=== PATIENT | female | born 1990 | race Caucasian/White ===

== ENCOUNTER 2017-11-20 15:12 | Emergency (ER) | payer MEDICAID ==
[~2017-11-20] VITALS: Ht 167.6 cm; Wt 59.1 kg
[2017-11-20 15:27] VITALS: Ht 167.6 cm; Wt 59.1 kg
[2017-11-20] MEDS ORDERED: OMEPRAZOLE40 MG PO (15:29)
[2017-11-20] MEDS ORDERED: ADDERALL 20 MG20 M1 PO (15:29)
[2017-11-20] MEDS ORDERED: ZOFRAN4 MG PO (15:29)
[2017-11-20 16:59] LABS: BASOPHILS 0.1 % (0-2); EOSINOPHILS 1.1 % (0-7); HEMATOCRIT 34.2 % (36.0-48.0); HEMOGLOBIN 11.8 g/dL (12-16); IMMATURE GRANULOCYTES 0.1 % (0-5); LYMPHOCYTES 32.6 % (15-50); MCH 31.6 pg (26.0-34.0); MCHC 34.5 g/dL (31.0-37.0); MCV 91.7 fL (80.0-100.0); MEAN PLATELET VOLUME 9.3 fL (7.4-10.4); MONOCYTES 4.6 % (2-11); NEUTROPHILS 61.5 % (40-80); PLATELET COUNT 269 10x3/uL (130-400); RBC 3.73 10x6/uL (4.00-5.40); RDW 12.9 % (11.5-14.5); WBC 7.6 10x3/uL (4.8-10.8)
[2017-11-20 17:29] LABS: ALBUMIN 3.7 g/dL (3.4-5.0); ALKALINE PHOSPHATASE 64 U/L (46-116); ALT (SGPT) 24 U/L (10-68); BILIRUBIN - TOTAL 0.31 mg/dL (0.2-1.3); CALC OSMOLALITY 277 mosm/kg (275-300); CALCIUM 8.8 mg/dL (8.5-10.1); CARBON DIOXIDE 26.2 mmol/L (21.0-32.0); CHLORIDE - SERUM 105 mmol/L (98-107); CREATININE - SERUM 0.9 mg/dL (0.6-1.3); GLUCOSE 109 mg/dL (74-106); POTASSIUM - SERUM 3.7 mmol/L (3.5-5.1); PROTEIN - SERUM 7.2 g/dL (6.4-8.2); SODIUM 140 mmol/L (136-145); UREA NITROGEN 7 mg/dL (7-18); eGFR NON AFRICAN AMERICAN 78 mL/min (90-120)
[2017-11-20 17:38] LABS: AMYLASE - SERUM 54 U/L (25-115); LIPASE 98 U/L (73-393)
[2017-11-20 18:12] LABS: APPEARANCE CLEAR (CLEAR); BILIRUBIN NEGATIVE (NEGATIVE); COLOR YELLOW (YELLOW); EPITHELIAL CELLS 0-5 /hpf (0-5); GLUCOSE NEGATIVE (NEGATIVE); KETONE NEGATIVE (NEGATIVE); NITRITE NEGATIVE (NEGATIVE); PROTEIN NEGATIVE (NEGATIVE); RED CELLS - URINE OCC /hpf (0-5); SPECIFIC GRAVITY 1.015 (1.005-1.020); UROBILINOGEN NORMAL (NORMAL); WHITE CELLS - URINE 0-5 /hpf (0-5)
[2017-11-20 18:13] LABS: BACTERIA FEW /hpf (NONE SEEN); MUCUS <1+ /lpf (NONE SEEN)
[2017-11-20] MEDS ORDERED: MACROBID100 MG PO (18:47)
[2017-11-20] MEDS ORDERED: BENTYL 20 MG TA20 MG PO (18:47)
[2017-11-20] MEDS ORDERED: COMPAZINE10 MG PO (18:47)
[2017-11-20 19:32] VITALS: BP 112/81
[2017-11-20 22:05] LABS: HCG URINE NEGATIVE (NEGATIVE)
== END 2017-11-20 19:33 | disposition home or self-care (01) ==
LOC: D.ER 15:12
PROVIDERS: Family Medicine
DX: N39.0 Urinary tract infection, site not specified (principal); R10.9 Unspecified abdominal pain; R11.2 Nausea with vomiting, unspecified

== ENCOUNTER 2018-04-10 11:07 | Inpatient (IN) | payer MEDICAID ==
[~2018-04-10] VITALS: Ht 167.6 cm; Wt 61.2 kg
[~2018-04-10 11:07] MED LIST: ADDERALL 20 MG20 M1 PO; BENTYL 20 MG TA20 MG PO; COMPAZINE10 MG PO; MACROBID100 MG PO; OMEPRAZOLE40 MG PO; ZOFRAN4 MG PO
[2018-04-10] MEDS ORDERED: ERYTHROCIN STE250 MG PO (11:16)
[2018-04-10 11:55] LABS: BASOPHILS 0.1 % (0-2); EOSINOPHILS 0.6 % (0-7); HEMOGLOBIN 12.3 g/dL (12-16); MCH 31.1 pg (26.0-34.0); MCHC 34.2 g/dL (31.0-37.0); MCV 91.1 fL (80.0-100.0); MEAN PLATELET VOLUME 9.2 fL (7.4-10.4); MONOCYTES 4.6 % (2-11); NEUTROPHILS 64.7 % (40-80); PLATELET COUNT 277 10x3/uL (130-400); RBC 3.95 10x6/uL (4.00-5.40); RDW 13.2 % (11.5-14.5); WBC 6.9 10x3/uL (4.8-10.8)
--- NOTE | 2018-04-10 11:55 | NUR ---
OCCULT BLOOD STOOL SPEC POSITIVE. EDP DR BULLOCK NOTIFIED OF RESULT.
[2018-04-10 12:00] VITALS: BP 123/91
[2018-04-10] MEDS ORDERED: KLONOPIN1 MG PO (12:07)
[2018-04-10] MEDS ORDERED: ZYPREXA10 MG PO (12:09)
[2018-04-10] MEDS ORDERED: PHENERGAN25 MG RC (12:09)
[2018-04-10 12:13] LABS: ALBUMIN 3.8 g/dL (3.4-5.0); ALKALINE PHOSPHATASE 70 U/L (46-116); ALT (SGPT) 18 U/L (10-68); BILIRUBIN - TOTAL 0.35 mg/dL (0.2-1.3); CALC OSMOLALITY 278 mosm/kg (275-300); CALCIUM 9.6 mg/dL (8.5-10.1); CARBON DIOXIDE 26.1 mmol/L (21.0-32.0); CHLORIDE - SERUM 103 mmol/L (98-107); CREATININE - SERUM 0.9 mg/dL (0.6-1.3); GLUCOSE 113 mg/dL (74-106); POTASSIUM - SERUM 4.2 mmol/L (3.5-5.1); SODIUM 140 mmol/L (136-145); UREA NITROGEN 10 mg/dL (7-18); eGFR NON AFRICAN AMERICAN 78 mL/min (90-120)
[2018-04-10 12:35] LABS: CKMB 0.5 U/L (0.0-3.6); CREATINE KINASE 88 UL (21-215)
[2018-04-10 12:38] LABS: TROPONIN-I < 0.017 ng/mL (0.000-0.060)
[2018-04-10 13:00] VITALS: BP 134/97
--- NOTE | 2018-04-10 13:21 | NUR ---
PT SITTING SEMI FOWLERS. CALL LIGHT IN REACH. NO DISTRESS NOTED. PT HAS NO NEEDS AT THIS TIME. WILL CONT TO MONITOR.
[2018-04-10 14:30] VITALS: BP 136/96
[2018-04-10 15:30] VITALS: BP 132/93
--- NOTE | 2018-04-10 15:36 | NUR ---
PATIENT OBSERVED SITTING IN SEMI FOWLERS. NO SIGNS OF DISTRESS. RESP EVEN AND UNLABORED. CALL LIGHT IN REACH. NO VOMITING SINCE ARRIVAL TO ED NOTED OR REPORTED.
[2018-04-10 16:30] VITALS: BP 123/91
--- NOTE | 2018-04-10 18:08 | NUR ---
NURSE ATTEMPTED TO CALL REPORT AT THIS TIME, RECEIVING NURSE UNAVAILABLE. WILL ATTEMPT TO CALL REPORT AGAIN SHORTLY.
[2018-04-10 20:35] VITALS: BP 120/80
--- NOTE | 2018-04-10 23:30 | NUR ---
PT C/O HAVING PAIN AND DISCOMFORT STARTING IN [place]LLY [place]TON THAT RADIATES TO RT SIDE. LEVISIN ORDERED Q8, NEXT DOSE WASNT UNTILL 0300AM. CALLED DOC AND HE GAVE PERMISSION TO GIVE EARLY. GAVE KLONIPIN AFTER NAUSEA SUBSIDED. WILL CONTINUE POC.
[2018-04-11] VITALS (7 sets, daily range): BP systolic 99–120; BP diastolic 67–87; Ht 167.6 cm; Wt 61.2 kg
[2018-04-11] MEDS ORDERED: CHRONULAC30 ML PO (02:12)
[2018-04-11 05:21] LABS: BASOPHILS 0.2 % (0-2); EOSINOPHILS 1.7 % (0-7); HEMATOCRIT 36.6 % (36.0-48.0); HEMOGLOBIN 12.4 g/dL (12-16); LYMPHOCYTES 39.2 % (15-50); MCH 31.3 pg (26.0-34.0); MCHC 33.9 g/dL (31.0-37.0); MCV 92.4 fL (80.0-100.0); MEAN PLATELET VOLUME 9.2 fL (7.4-10.4); MONOCYTES 7.5 % (2-11); NEUTROPHILS 51.4 % (40-80); PLATELET COUNT 242 10x3/uL (130-400); RBC 3.96 10x6/uL (4.00-5.40); RDW 13.1 % (11.5-14.5); WBC 5.3 10x3/uL (4.8-10.8)
[2018-04-11 05:51] LABS: ALBUMIN 3.5 g/dL (3.4-5.0); ALKALINE PHOSPHATASE 65 U/L (46-116); ALT (SGPT) 16 U/L (10-68); BILIRUBIN - TOTAL 0.66 mg/dL (0.2-1.3); CALC OSMOLALITY 272 mosm/kg (275-300); CALCIUM 8.9 mg/dL (8.5-10.1); CARBON DIOXIDE 25.9 mmol/L (21.0-32.0); CHLORIDE - SERUM 101 mmol/L (98-107); CREATININE - SERUM 0.9 mg/dL (0.6-1.3); GLUCOSE 120 mg/dL (74-106); MAGNESIUM - SERUM 1.6 mg/dL (1.8-2.4); PHOSPHOROUS 3.5 mg/dL (2.5-4.9); POTASSIUM - SERUM 4.1 mmol/L (3.5-5.1); PROTEIN - SERUM 7.4 g/dL (6.4-8.2); SODIUM 137 mmol/L (136-145); eGFR NON AFRICAN AMERICAN 78 mL/min (90-120)
[2018-04-11 05:52] LABS: UREA NITROGEN 6 mg/dL (7-18)
--- NOTE | 2018-04-11 07:59 | NUR ---
PT RESTING QUIETLY IN BED. ALERT AND ORIENTED. NO ACUTE DISTRESS. VOICES PAIN 2/10 AT THIS TIME, BUT CONTINUES TO VOICE MILD NAUSEA. ABDOMEN SOFT, BUT TENDER AT THIS TIME. DENIES NEED FOR NAUSEA MEDS AT THIS TIME. IV TO RIGHT HAND WITH D5W WITH 20K @ 125ML/HR INFUSING VIA PUMP. SITE WITHOUT REDNESS OR EDEMA. PT DENIES FURTHER NEEDS AT THIS TIME. CL WITHIN REACH. ENCOURAGED TO CALL WITH NEEDS. CONTINUE POC
--- NOTE | 2018-04-11 14:18 | MORECARE ---
CASE MANAGEMENT DISCHARGE SUMMARY PATIENT: MARIA M BOONE UNIT: [id number] ADM DATE: 04/10/18 AGE: 28 : [birth year] SEX: F ROOM/BED: D.2233 AUTHOR: NADJA MOTA PHYSICIAN: REFERRING PHYSICIAN: DARRYL MCKAY DO DATE OF SERVICE: 04/11/18 Discharge Plan Patient Name: MARIA M BOONE [facility] [facility] 1990 Planned Disposition: Home Anticipated Discharge Date: Discharge Date: Expected LOS: Initial Reviewer: [email or web address] Initial Review Date: 04/11/2018 Generated: 04/11/18 3:18 pm DCPIA - Discharge Planning Initial Assessment Updated by [email or web address]: Jaye Caballero on 04/11/18 2:15 pm * Is the patient Alert and Oriented? Yes * How many steps to enter\exit or inside your home? 0/0 * PCP Dr. Ernie Giron in [place] * Pharmacy [facility] in [place] * Preadmission Environment Home with Family * ADLs Independent * Equipment None * List name and contact numbers for known caregivers / representatives who currently or will assist patient after discharge: Osvaldo Lopez [facility] - [phone] * Verbal permission to speak to the caregivers and representatives has been obtained from the patient. Yes * Community resources currently utilized None * Additional services required to return to the preadmission environment? No * Can the patient safely return to the preadmission environment? Yes * Has this patient been hospitalized within the prior 30 days at any hospital? Yes Patient Name: MARIA M BOONE Page [id number] at 1418 All edits/amendments must be made on the electronic document DICTATION DATE: 04/11/181417 POURER BULL LADLE: HUNTER 04/11/181417 RPT#: [id number] DC DATE: STATUS: ADM IN [facility] [address] [place] [address] END OF REPORT
--- NOTE | 2018-04-11 14:29 | MORECARE ---
CASE MANAGEMENT DISCHARGE SUMMARY PATIENT: MARIA M BOONE UNIT: [id number] ADM DATE: 04/10/18 AGE: 28 : [birth year] SEX: F ROOM/BED: D.2233 AUTHOR: SVETLANA,DOC PHYSICIAN: REFERRING PHYSICIAN: DARRYL MCKAY DO DATE OF SERVICE: 04/11/18 Discharge Plan Patient Name: MARIA M BOONE Facility: [facility]:[place] : 1990 Planned Disposition: Home Anticipated Discharge Date: Discharge Date: Expected LOS: Initial Reviewer: [email or web address] Initial Review Date: 04/11/2018 Generated: 04/11/18 3:28 pm Comments DCP- Discharge Planning Updated by [email or web address]: Jaye Caballero on 04/11/18 1:[address] Patient Name: MARIA M BOONE Admission Status: ER Accout number: [id number] Admission Date: 04-10-2018 : 1990 Admission Diagnosis: Attending: DARRYL MCKAY Current LOS: 1 Anticipated DC Date: Planned Disposition: Home Primary Insurance: [employer] [place] PRIVATE OPTIONS MARIAH Discharge Planning Comments: CM met with patient to discuss discharge planning, she is alone in the room. States she lives with her parents and 9 year old daughter. States she is independent with all ADL's and IADL's. States she does not have any DME or need any DME. Declines need for home health. States she sees an [facility] in [place] as her GI specialist. States she has had gastroparesis for 5 years and usually can come to the ER for fluids and be ok, but this is her 3rd hospitalization this month. CM will continue to follow and assist with discharge planning/needs. Control Chemist: Jaye Caballero DCPIA - Discharge Planning Initial Assessment Updated by [email or web address]: Jaye Caballero on 04/11/18 2:15 pm * Is the patient Alert and Oriented? Yes * How many steps to enter\exit or inside your home? 0/0 * PCP Dr. Ernie Giron in [place] * Pharmacy [facility] in [place] * Preadmission Environment Home with Family * ADLs Independent * Equipment None * List name and contact numbers for known caregivers / representatives who currently or will assist patient after discharge: Osvaldo Leung [facility] - [phone] * Verbal permission to speak to the caregivers and representatives has been obtained from the patient. Yes * Community resources currently utilized None * Additional services required to return to the preadmission environment? No * Can the patient safely return to the preadmission environment? Yes * Has this patient been hospitalized within the prior 30 days at any hospital? Yes Last DP export: 04/11/18 1:18 p Patient Name: MARIA M BOONE Page [id number] at 1429 All edits/amendments must be made on the electronic document DICTATION DATE: 04/11/181427 RESOURCES REPRESENTATIVE: HUNTER 04/11/181427 RPT#: [id number] DC DATE: STATUS: ADM IN [facility] [address] [place] [address] END OF REPORT
--- NOTE | 2018-04-11 19:10 | NUR ---
THE PATIENT WAS WATCHING TELEVISION WHEN STAFF ENTERED HER ROOM. BED IN THE LOW POSITION WITH SIDERAILS X2 AND CALL LIGHT WITHIN REACH. PATIENT DEMONSTRATED APPROPRIATE USE OF A CALL LIGHT. THE PATIENT APPEARS COMFORTABLE WITH NO QUESTIONS OR CONCERNS AT THIS TIME.
--- NOTE | 2018-04-11 20:10 | NUR ---
THE PATIENT WAS WATCHING TELEVISION WITH HIS WHEN STAFF ENTERED HIS ROOM. BED IN LOW POSITION WITH SIDERAILS X2 AND CALL LIGHT WITHIN REACH. PATIENT DEMONSTRATES USE OF A CALL LIGHT. THE PATIENT HAS NO QUESTIONS OR CONCERNS AT THIS TIME.
--- NOTE | 2018-04-11 23:15 | NUR ---
PATIENT REQUESTS PAIN MEDICATION. ORDERED SECURED AND PAIN MEDICATION DELIVERED.
--- NOTE | 2018-04-12 01:41 | NUR ---
NEW IV HUNG. THE PATIENT APPEARS COMFORTABLE AND HAS NO QUESTIONS OR CONCERNS AT THIS TIME.
[2018-04-12 05:04] VITALS: BP 96/64
[2018-04-12 05:18] LABS: BASOPHILS 0.2 % (0-2); EOSINOPHILS 2.1 % (0-7); HEMATOCRIT 39.7 % (36.0-48.0); HEMOGLOBIN 13.2 g/dL (12-16); MCH 31.2 pg (26.0-34.0); MCHC 33.2 g/dL (31.0-37.0); MCV 93.9 fL (80.0-100.0); MEAN PLATELET VOLUME 9.3 fL (7.4-10.4); MONOCYTES 5.5 % (2-11); NEUTROPHILS 52.2 % (40-80); RBC 4.23 10x6/uL (4.00-5.40); RDW 13.3 % (11.5-14.5); WBC 6.3 10x3/uL (4.8-10.8)
[2018-04-12 05:32] LABS: PLATELET COUNT 327 10x3/uL (130-400)
[2018-04-12 07:51] LABS: ALBUMIN 3.7 g/dL (3.4-5.0); ALKALINE PHOSPHATASE 68 U/L (46-116); ALT (SGPT) 19 U/L (10-68); BILIRUBIN - TOTAL 0.66 mg/dL (0.2-1.3); CALC OSMOLALITY 271 mosm/kg (275-300); CALCIUM 8.9 mg/dL (8.5-10.1); CARBON DIOXIDE 26.3 mmol/L (21.0-32.0); CHLORIDE - SERUM 101 mmol/L (98-107); CREATININE - SERUM 0.8 mg/dL (0.6-1.3); GLUCOSE 91 mg/dL (74-106); POTASSIUM - SERUM 4.1 mmol/L (3.5-5.1); PROTEIN - SERUM 7.9 g/dL (6.4-8.2); SODIUM 137 mmol/L (136-145); UREA NITROGEN 7 mg/dL (7-18); eGFR NON AFRICAN AMERICAN 89 mL/min (90-120)
[2018-04-12 09:46] VITALS: BP 95/64
--- NOTE | 2018-04-12 12:36 | MORECARE ---
CASE MANAGEMENT DISCHARGE SUMMARY PATIENT: MARIA M BOONE UNIT: [id number] ADM DATE: 04/10/18 AGE: 28 : [birth year] SEX: F ROOM/BED: D.2233 AUTHOR: NADJA MOTA PHYSICIAN: REFERRING PHYSICIAN: DARRYL MCKAY DO DATE OF SERVICE: 04/12/18 Discharge Plan Patient Name: MARIA M BOONE Facility: [facility]:[place] : 1990 Planned Disposition: Home Anticipated Discharge Date: Discharge Date: Expected LOS: Initial Reviewer: [email or web address] Initial Review Date: 04/11/2018 Generated: 04/12/18 1:36 pm Comments DCP- Discharge Planning Updated by [email or web address]: Jaye Caballero on 04/12/18 11:[address] Patient Name: MARIA M BOONE Encounter No: [id number] : 1990 Primary Insurance: [employer] PRIVATE OPTIONS MARIAH Anticipated DC Date: Planned Disposition: Home External Planned Provider: : DCP follow-up note: Patient in agreement with discharge plan. States she already has called her doctor's in [place] for follow-up. Denies discharge needs. No changes to plan. Case management will follow and assist as needed. Jaye Caballero DCP- Discharge Planning Updated by [email or web address]: Jaye Caballero on 04/11/18 1:[address] Patient Name: MARIA M BOONE Admission Status: ER Accout number: [id number] Admission Date: 04-10-2018 : 1990 Admission Diagnosis: Attending: DARRYL MCKAY Current LOS: 1 Anticipated DC Date: Planned Disposition: Home Primary Insurance: [employer] MARIAH Discharge Planning Comments: CM met with patient to discuss discharge planning, she is alone in the room. States she lives with her parents and 9 year old daughter. States she is independent with all ADL's and IADL's. States she does not have any DME or need any DME. Declines need for home health. States she sees an [facility] in [place] as her GI specialist. States she has had gastroparesis for 5 years and usually can come to the ER for fluids and be ok, but this is her 3rd hospitalization this month. CM will continue to follow and assist with discharge planning/needs. Blunger Loader: Jaye Caballero DCPIA - Discharge Planning Initial Assessment Updated by [email or web address]: Jaye Ada on 04/11/18 2:15 pm * Is the patient Alert and Oriented? Yes * How many steps to enter\exit or inside your home? 0/0 * PCP Dr. Ernie Giron in [place] * Pharmacy [facility] in [place] * Preadmission Environment Home with Family * ADLs Independent * Equipment None * List name and contact numbers for known caregivers / representatives who currently or will assist patient after discharge: Osvaldo Lopez [facility] - [phone] * Verbal permission to speak to the caregivers and representatives has been obtained from the patient. Yes * Community resources currently utilized None * Additional services required to return to the preadmission environment? No * Can the patient safely return to the preadmission environment? Yes * Has this patient been hospitalized within the prior 30 days at any hospital? Yes Last DP export: 04/11/18 1:29 p Patient Name: MARIA M BOONE Page 92399 at 1236 All edits/amendments must be made on the electronic document DICTATION DATE: 04/12/18 1236 COMMUTATOR OPERATOR: HUNTER 04/12/18 1236 RPT#: [id number] DC DATE: STATUS: ADM IN [facility] [address] [place] [address] END OF REPORT
--- NOTE | 2018-04-12 14:42 | NUR ---
PATIENT DRESSED AND UP ON SIDE OF BED, SKIN W/D TO TOUCH, COLOR PINK, RESP. REGULAR AND EVEN AT 18. ABDOMEN TENDER AND SLIGHTLY DISTENEDED. PATIENT READY FOR DISCHARGE. DISCHARGE PAPERS GIVEN AND PATIENT VERBALIZED UNDERSTANDING. IV D/C AT 11:30.DISCHARGED VIA PRIVATE VEHICLE.
--- NOTE | 2018-04-12 15:14 | NUR ---
PATIENT SITTING UP IN CHAIR WAITING FOR DISCHARGE PAPERS, NO NEEDS VOICED AT THIS TIME
--- NOTE | 2018-04-23 07:03 | MORECARE ---
CASE MANAGEMENT DISCHARGE SUMMARY PATIENT: MARIA M BOONE UNIT: [id number] ADM DATE: 04/10/18 AGE: 28 : [birth year] SEX: F ROOM/BED: D.2233 AUTHOR: NADJA MOTA PHYSICIAN: REFERRING PHYSICIAN: DARRYL MCKAY DO DATE OF SERVICE: 04/23/18 Discharge Plan Patient Name: MARIA M BOONE Facility: [facility]:[place] : 1990 Planned Disposition: Home Anticipated Discharge Date: Discharge Date: 04/12/2018 Expected LOS: 0 Initial Reviewer: [email or web address] Initial Review Date: 04/11/2018 Generated: 04/23/18 8:03 am Comments DCP- Discharge Planning Updated by [email or web address]: Jaye Caballero on 04/12/18 11:[address] Patient Name: MARIA M BOONE Encounter No: [id number] : 1990 Primary Insurance: [employer] PRIVATE OPTIONS MARIAH Anticipated DC Date: Planned Disposition: Home External Planned Provider: : DCP follow-up note: Patient in agreement with discharge plan. States she already has called her doctor's in [place] for follow-up. Denies discharge needs. No changes to plan. Case management will follow and assist as needed. Jaye Caballero DCP- Discharge Planning Updated by [email or web address]: Jaye Caballero on 04/11/18 1:[address] Patient Name: MARIA M BOONE Admission Status: ER Accout number: [id number] Admission Date: 04-10-2018 : 1990 Admission Diagnosis: Attending: DARRYL MCKAY Current LOS: 1 Anticipated DC Date: Planned Disposition: Home Primary Insurance: [employer] PRIVATE OPTIONS MARIAH Discharge Planning Comments: CM met with patient to discuss discharge planning, she is alone in the room. States she lives with her parents and 9 year old daughter. States she is independent with all ADL's and IADL's. States she does not have any DME or need any DME. Declines need for home health. States she sees an [facility] in [place] as her GI specialist. States she has had gastroparesis for 5 years and usually can come to the ER for fluids and be ok, but this is her 3rd hospitalization this month. CM will continue to follow and assist with discharge planning/needs. Wringer Operator: Jaye Ada DCPIA - Discharge Planning Initial Assessment Updated by [email or web address]: Jaye Caballero on 04/11/18 2:15 pm * Is the patient Alert and Oriented? Yes * How many steps to enter\exit or inside your home? 0/0 * PCP Dr. Ernie Giron in [place] * Pharmacy [facility] in [place] * Preadmission Environment Home with Family * ADLs Independent * Equipment None * List name and contact numbers for known caregivers / representatives who currently or will assist patient after discharge: Osvaldo Lopez [facility] - [phone] * Verbal permission to speak to the caregivers and representatives has been obtained from the patient. Yes * Community resources currently utilized None * Additional services required to return to the preadmission environment? No * Can the patient safely return to the preadmission environment? Yes * Has this patient been hospitalized within the prior 30 days at any hospital? Yes Last DP export: 04/12/18 11:36 a Patient Name: MARIA M BOONE Page [id number] at 0703 All edits/amendments must be made on the electronic document DICTATION DATE: 04/23/18701 DIRECTOR SALES AND MARKETING: HUNTER 04/23/18701 RPT#: [id number] DC DATE:04/12/18 STATUS: DIS IN [facility] [address] [place] [address] END OF REPORT
== END 2018-04-12 15:34 | disposition home or self-care (01) | DRG 392 ==
LOC: D.ER 11:07 → D.EDHOLD 17:01 → D.MS 17:01
PROVIDERS: Family Medicine; ADMIT Family Medicine
DX: K31.84 Gastroparesis (principal); F41.8 Other specified anxiety disorders; E86.0 Dehydration

== ENCOUNTER 2018-07-24 11:29 | Emergency (ER) | payer MEDICAID ==
[~2018-07-24] VITALS: Ht 167.6 cm; Wt 61.4 kg
[~2018-07-24 11:29] MED LIST changes: +CHRONULAC30 ML PO; +ERYTHROCIN STE250 MG PO; +KLONOPIN1 MG PO; +PHENERGAN25 MG RC; +ZYPREXA10 MG PO
[2018-07-24 11:41] VITALS: Ht 167.6 cm; Wt 61.4 kg
[2018-07-24 12:21] LABS: BASOPHILS 0.2 % (0-2); EOSINOPHILS 1.6 % (0-7); HEMATOCRIT 34.2 % (36.0-48.0); HEMOGLOBIN 11.8 g/dL (12-16); IMMATURE GRANULOCYTES 0.2 % (0-5); LYMPHOCYTES 42.3 % (15-50); MCH 31.7 pg (26.0-34.0); MCHC 34.5 g/dL (31.0-37.0); MCV 91.9 fL (80.0-100.0); MEAN PLATELET VOLUME 8.8 fL (7.4-10.4); MONOCYTES 5.5 % (2-11); NEUTROPHILS 50.2 % (40-80); RBC 3.72 10x6/uL (4.00-5.40); RDW 12.8 % (11.5-14.5); WBC 4.9 10x3/uL (4.8-10.8)
[2018-07-24 12:31] LABS: PLATELET COUNT 227 10x3/uL (130-400)
[2018-07-24 12:35] LABS: ALBUMIN 3.4 g/dL (3.4-5.0); ALKALINE PHOSPHATASE 51 U/L (46-116); ALT (SGPT) 15 U/L (10-68); BILIRUBIN - TOTAL 0.42 mg/dL (0.2-1.3); CALC OSMOLALITY 273 mosm/kg (275-300); CALCIUM 8.5 mg/dL (8.5-10.1); CARBON DIOXIDE 24.1 mmol/L (21.0-32.0); CHLORIDE - SERUM 104 mmol/L (98-107); CREATININE - SERUM 0.8 mg/dL (0.6-1.3); GLUCOSE 90 mg/dL (74-106); POTASSIUM - SERUM 3.5 mmol/L (3.5-5.1); PROTEIN - SERUM 7.4 g/dL (6.4-8.2); SODIUM 138 mmol/L (136-145); UREA NITROGEN 7 mg/dL (7-18); eGFR NON AFRICAN AMERICAN 89 mL/min (90-120)
[2018-07-24 12:39] LABS: INR 1.12 (0.85-1.17); PROTIME 13.9 SECONDS (11.6-15.0)
[2018-07-24 12:40] LABS: APTT 39.7 SECONDS (22.8-39.4)
[2018-07-24 12:45] LABS: CKMB 0.2 U/L (0.0-3.6); CREATINE KINASE 63 UL (21-215); MAGNESIUM - SERUM 1.6 mg/dL (1.8-2.4)
[2018-07-24 12:47] LABS: TROPONIN-I < 0.017 ng/mL (0.000-0.060)
[2018-07-24] MEDS ORDERED: ZOFRAN ODT4 MG/UDTAB PO (14:13)
[2018-07-24 15:14] VITALS: BP 129/65
== END 2018-07-24 15:05 | disposition home or self-care (01) ==
LOC: D.ER 11:29
PROVIDERS: Family Medicine
DX: K31.84 Gastroparesis (principal); R11.2 Nausea with vomiting, unspecified

== ENCOUNTER 2018-07-27 17:53 | Emergency (ER) | payer MEDICAID ==
[~2018-07-27 17:53] MED LIST changes: +ZOFRAN ODT4 MG/UDTAB PO
[2018-07-27 17:58] VITALS: BMI 21.8
[2018-07-27 18:46] LABS: BASOPHILS 0.1 % (0-2); EOSINOPHILS 0.7 % (0-7); HEMATOCRIT 33.7 % (36.0-48.0); HEMOGLOBIN 11.7 g/dL (12-16); IMMATURE GRANULOCYTES 0.3 % (0-5); MCH 31.9 pg (26.0-34.0); MCHC 34.7 g/dL (31.0-37.0); MCV 91.8 fL (80.0-100.0); MEAN PLATELET VOLUME 8.9 fL (7.4-10.4); MONOCYTES 6.6 % (2-11); NEUTROPHILS 57.3 % (40-80); PLATELET COUNT 234 10x3/uL (130-400); RBC 3.67 10x6/uL (4.00-5.40); RDW 12.9 % (11.5-14.5); WBC 6.9 10x3/uL (4.8-10.8)
[2018-07-27 18:55] LABS: INR 1.12 (0.85-1.17); PROTIME 13.9 SECONDS (11.6-15.0)
[2018-07-27 19:06] LABS: ALBUMIN 3.4 g/dL (3.4-5.0); ALKALINE PHOSPHATASE 44 U/L (46-116); ALT (SGPT) 22 U/L (10-68); BILIRUBIN - TOTAL 0.31 mg/dL (0.2-1.3); CALC OSMOLALITY 279 mosm/kg (275-300); CALCIUM 9.1 mg/dL (8.5-10.1); CARBON DIOXIDE 24.4 mmol/L (21.0-32.0); CHLORIDE - SERUM 106 mmol/L (98-107); CREATININE - SERUM 0.8 mg/dL (0.6-1.3); GLUCOSE 91 mg/dL (74-106); PROTEIN - SERUM 7.2 g/dL (6.4-8.2); SODIUM 141 mmol/L (136-145); UREA NITROGEN 11 mg/dL (7-18); eGFR NON AFRICAN AMERICAN 89 mL/min (90-120)
[2018-07-27 19:16] LABS: CKMB 0.7 U/L (0.0-3.6); CREATINE KINASE 82 UL (21-215); MAGNESIUM - SERUM 1.4 mg/dL (1.8-2.4); TROPONIN-I < 0.017 ng/mL (0.000-0.060)
[2018-07-27] MEDS ORDERED: PHENERGAN25 M1 PO (20:21)
[2018-07-27] MEDS ORDERED: VOLTAREN75 MG PO (20:21)
[2018-07-27 21:06] VITALS: BP 142/94
== END 2018-07-27 21:05 | disposition home or self-care (01) ==
LOC: D.ER 17:53
PROVIDERS: Family Medicine
DX: R07.81 Pleurodynia (principal); R11.0 Nausea